=== PATIENT | male | born 1955 | race Caucasian/White ===

== ENCOUNTER → 2018-01-20 | Outpatient (REF) | payer OTHER ==
[~2018-01-20] MED LIST: CYCL10TA29 PO; KET10 PO; LEVO50TA86 PO; LOR5/325 PO; MULT-820 PO; NAPR-1043 PO; OMEG500C7 PO; PER PO
== END ==
LOC: ZZSENDIN 12:00
PROVIDERS: ATTEND Urology
DX: N42.89 Other specified disorders of prostate (principal)
CPT/HCPCS: 88305; 88344

== ENCOUNTER 2019-01-13 01:46 | Day surgery (SDC) | payer OTHER ==
[~2019-01-13] VITALS: Ht 172.7 cm; Wt 73.9 kg
[~2019-01-13 01:46] MED LIST changes: +MIRA25TA PO; +TAMS0.4C25 PO
[2019-01-13] MEDS ORDERED: NORMOSOL R SOLN(*) 1000 ML BAG 1,000 ML IV PRN (07:30)
[2019-01-13] MEDS ORDERED: LIDOCAINE/SOD BICARB 8.4% SYR ID ONE (07:30)
[2019-01-13] MEDS ORDERED: LIDOCAINE MPF 1% 5 ML VIAL ONE (07:48)
[2019-01-13] MEDS ORDERED: PROPOFOL EMUL(*) 10MG/ML 20 ML 40 ML ONE (07:48)
[2019-01-13 08:01] VITALS: BP 138/99
[2019-01-13 09:10] VITALS: BP 107/71
[2019-01-13 09:30] VITALS: BP 95/60
[2019-01-13 09:58] VITALS: BP 123/83
[2019-01-13 09:59] VITALS: BP 131/77
== END 2019-01-13 10:30 | disposition home or self-care (01) ==
LOC: OR 01:46
PROVIDERS: ATTEND Family Medicine
DX: Z12.11 Encounter for screening for malignant neoplasm of colon (principal); K57.30 Diverticulosis of large intestine without perforation or abscess without bleeding
CPT/HCPCS: 00812; 45378; J2001; J2704

== ENCOUNTER 2019-01-20 00:52 | Day surgery (SDC) | payer OTHER ==
--- NOTE | 2019-01-18 14:07 | NUR ---
DR COOK CONTACTED ABOUT GENTAMICIN ORDER. CLARIFIED TO FOLLOW PROTOCOL OF 5MG PER KG.
--- NOTE | 2019-01-19 09:25 | EKG ---
FACILITY: [facility] [place] PATIENT NAME: ARIEL DESOUZA : [id number] MR: [id number] V: [id number] EXAM DATE: ORDERING PHYSICIAN: AMIRA WARREN TECHNOLOGIST: Test Reason : preop-prostate Blood Pressure : / mmHG Vent. Rate : 070 BPM Atrial Rate : 070 BPM P-R Int : 154 ms QRS Dur : 090 ms QT Int : 408 ms P-R-T Axes : 031 061 039 degrees QTc Int : 440 ms Sinus rhythm No acute appearing findings Confirmed by NATI OLIVA ([id number] on 01/19/2019 10:53:50 AM Referred By: Confirmed By:NATI OLIVA
[2019-01-19 09:31] LABS: PLATELET COUNT, AUTOMATED 209 K/uL (150-450)
--- NOTE | 2019-01-19 09:34 | HISTORY AND PHYSICAL ---
DATE OF ADMISSION: January 20, 2019 CHIEF COMPLAINT Elevated PSA. HISTORY OF PRESENT ILLNESS Patient is a 63-year old white male who was noted to have an elevated PSA. He is now being brought to the operating room for planned ultrasound-guided biopsy. His history beginning in 2010, when he was noted to have a small subtle nodule at the right prostatic base. At that time, his PSA was 1.9. He underwent an office biopsy, which revealed a 36 cc volume prostate and negative for cancer on his biopsy. He was followed over the next several years with a fairly stable PSA until early in 2017, when it elevated to 7.6. This was repeated and it was 6.0. He underwent another biopsy in the office. At that time his volume was 40 cc. Again, no cancer was found. At this time, a ConfirmMDx test was performed on the tissue obtained, which did show some methylation in two of the areas to give him an overall likelihood of cancer of 37%. It was a 21% chance of Sheila 6 and a 16% chance of 7 or greater. A repeat PSA was performed and it had decreased to 5.2 in March of this past year. It was repeated in August and was still 5.2. Since it had not further decreased, a SelectMDx test was performed, which came back very low risk. However, a followup PSA at the end of October this year was again elevated at 5.7. Given the patient's young age and excellent health status, with a significant positive ConfirmMDx, he is now being brought to the operating room for planned transrectal ultrasound saturation biopsy. Other options were discussed including multiparametric MRI, 4Kscore and a followup PSA. Again, specific risks and benefits were explained. He has opted to undergo biopsy in order to help definitively evaluate this finding. PAST MEDICAL HISTORY * Hypothyroidism. * BPH with urinary frequency. PAST SURGICAL HISTORY * Eyelid surgery. * Tonsillectomy. * Left shoulder surgery. * Left knee arthroscopy. * Colonoscopy. * Superficial skin cancer excision. CURRENT MEDICATIONS * Levothyroxine. * Myrbetriq. * Flomax. * Multivitamins. ALLERGIES No known drug allergies. SOCIAL HISTORY Patient lives in [place], [place]. He is . He denies tobacco use. He uses ethanol socially. REVIEW OF SYSTEMS Patient denies chest pain, shortness of breath, nausea, vomiting, fever, chills, productive cough, bleeding disorder, liver disease, chronic headaches, change in weight, gross hematuria or change in bowel habits. PHYSICAL EXAMINATION GENERAL: Patient is a well-developed, well-nourished white male in no acute distress. HEENT: Normocephalic, atraumatic. CHEST: Clear to auscultation bilaterally. CARDIOVASCULAR: Regular rate and rhythm. ABDOMEN: Soft, nontender. No masses palpated. : Deferred to OR. EXTREMITIES: Without clubbing, cyanosis or edema. NEUROLOGIC: Nonfocal. ASSESSMENT A 63-year old white male with elevated prostatic specific antigen, status post negative biopsy approximately one year ago with a positive ConfirmMDx test associated with a very low risk of SelectMDx. PLAN We will perform transrectal ultrasound saturation biopsies in the OR. [facility]
[~2019-01-20] VITALS: Ht 172.7 cm; Wt 73.5 kg
[~2019-01-20 00:52] MED LIST changes: +GENTAMICIN IVPB ONE; +GENTAMICIN/NS 80 MG/100 ML PB 100 ML IVPB ONE; +NS 0.9% IVPB ONE
[2019-01-20] MEDS ORDERED: LIDOCAINE/SOD BICARB 8.4% SYR ID ONE (11:40)
[2019-01-20] MEDS ORDERED: NORMOSOL R SOLN(*) 1000 ML BAG 1,000 ML IV PRN (11:40)
[2019-01-20] MEDS ORDERED: MIDAZOLAM 2 MG/2 ML VIAL IVP PRN (11:40)
[2019-01-20] MEDS ORDERED: FAMOTIDINE 20 MG TAB PO ONE (11:40)
[2019-01-20] MEDS ORDERED: ceFAZolin(*) 1 GM VIAL 1 GM in NS(*) 0.9% 100 ML MINI-BAG 100 ML IVPB ONE (11:40)
[2019-01-20 12:31] VITALS: BP 133/84
[2019-01-20] MEDS ORDERED: GENTAMICIN IVPB ONE (12:40)
[2019-01-20] MEDS ORDERED: NS 0.9% IVPB ONE (12:40)
[2019-01-20] MEDS ORDERED: ONDANSETRON 4 MG/2 ML VIAL ONE (13:15)
[2019-01-20] MEDS ORDERED: PROPOFOL EMUL(*) 10MG/ML 20 ML 20 ML ONE (13:15)
[2019-01-20] MEDS ORDERED: DEXAMETHASONE SOD PHOS 10MG/ML ONE (13:15)
--- NOTE | 2019-01-20 14:36 | OPERATIVE REPORT 1 ---
EVENT DATE: January 20, 2019 SURGEON: Eliel Patino MD ANESTHESIOLOGIST: Lacho Cody MD ANESTHESIA: General anesthetic. PREOPERATIVE DIAGNOSIS Elevated PSA. POSTOPERATIVE DIAGNOSIS Elevated PSA. PROCEDURES PERFORMED 1. Transrectal ultrasound of the prostate. 2. Prostate transrectal needle biopsy x36. 3. Ultrasound guidance for prostate needle placement. ESTIMATED BLOOD LOSS 5 mL. INTRAVENOUS FLUIDS Crystalloids. DRAINS None. COMPLICATIONS None. CONDITION Patient taken to the recovery room awake, in stable condition. STATEMENT OF MEDICAL NECESSITY Patient is a 63-year-old white male who has had an increasing PSA over the past several months. It was originally as high as 7.0. He underwent a prostate biopsy in the office, which revealed a 40 cc volume gland with no cancer. However, his ConfirmMDx status was positive with an overall cancer risk of 37%. His PSA has not significantly decreased, and his last number was 5.2. Given his young age and borderline PSA density, he is now being brought to the operating room for planned saturation-type biopsies. Again, operative consent is signed and on the chart. DESCRIPTION OF PROCEDURE PERFORMED Patient was brought to the operating room. After general anesthetic was attained, he was placed in the dorsal lithotomy position. Digital rectal exam was performed, which revealed an empty vault and an approximately 40 cc volume prostate. There was no nodularity or induration. At this point, the end-fire ultrasound probe was introduced into the patient's rectum atraumatically, and transrectal ultrasound of the prostate was performed. Environmental Health Technologist pictures at mid base and apex as well as medial and lateral were obtained, as well as the seminal vesicles. There were no significant ultrasonic abnormalities noted. His volume was calculated at 36 cc in size. At this point, the biopsy indicator on the ultrasound was engaged, and this was used for ultrasound guidance of his needle placement for the prostate biopsies. A total of 36 transrectal biopsies were performed using the Biopty gun under ultrasound guidance. Three were sent in each container marked right and left base, mid apex, and mediolateral. At the conclusion of the procedure, the patient was taken down from the dorsal lithotomy position. He was awakened in the operating room and taken to the recovery area in stable condition. PLAN We will allow the patient to be discharged home today. We will see him in the office in one week to review his pathology. MARVIN
== END 2019-01-20 14:55 | disposition home or self-care (01) ==
LOC: OR 00:52
PROVIDERS: ATTEND Urology
DX: R97.20 Elevated prostate specific antigen [PSA] (principal); E11.9 Type 2 diabetes mellitus without complications; E03.9 Hypothyroidism, unspecified; N40.1 Benign prostatic hyperplasia with lower urinary tract symptoms; R39.11 Hesitancy of micturition
CPT/HCPCS: 36415; 36416; 55700; 81001; 82948; 83036; 85025; 87088; 88305; 93005; J0690; J1100; J1580; J2250; J2405; J2704; J7050; 88344